=== PATIENT | female | born 1980 | race African-American/Black ===

== ENCOUNTER 2018-12-13 23:21 | Emergency (ER) | payer BC, OTHER ==
[2018-12-13] MEDS ORDERED: Ibuprofen 200 MG TAB ONE (23:38)
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
== END 2018-12-14 00:43 | disposition home or self-care (01) ==
LOC: BURERS 23:21
DX: S00.83XA Contusion of other part of head, initial encounter (principal); I10 Essential (primary) hypertension; Z79.899 Other long term (current) drug therapy; V89.2XXA Person injured in unspecified motor-vehicle accident, traffic, initial encounter
CPT/HCPCS: 70450

== ENCOUNTER 2021-04-01 21:45 | Emergency (ER) | payer BC, OTHER | END 2021-04-01 22:15 | disposition home or self-care (01) | LOC: BURERS 21:45 | DX: J06.9 Acute upper respiratory infection, unspecified (principal); Z20.822 Contact with and (suspected) exposure to COVID-19; I10 Essential (primary) hypertension; Z79.899 Other long term (current) drug therapy | CPT/HCPCS: 99283 ==